=== PATIENT | female | born 1965 | race Two or more races ===

== ENCOUNTER 2021-10-25 21:37 | Emergency (ER) | payer OTHER ==
[~2021-10-25] VITALS: Ht 165.1 cm; Wt 122.5 kg
[2021-10-26] MEDS: methylPREDNISolone SOD SUCC 125 MG/2 ML VL IM ONE (03:07)
[2021-10-26] MEDS: KETOROLAC TROMETH 60MG/2ML VIAL IM ONE (03:08)
[2021-10-26 03:09] VITALS: BP 163/87
== END 2021-10-26 03:36 | disposition home or self-care (01) ==
LOC: ER 21:37
DX: M54.42 Lumbago with sciatica, left side (principal); M62.830 Muscle spasm of back; I10 Essential (primary) hypertension
CPT/HCPCS: 96372; 99284; J1885; J2930